=== PATIENT | female | born 1975 | race Caucasian/White ===

== ENCOUNTER 2019-10-10 08:51 | Day surgery (SDC) | payer BC ==
[~2019-10-10] VITALS: Ht 152.4 cm; Wt 71.8 kg
[~2019-10-10 08:51] MED LIST: BIRTH CONTROL PILL; PREVACID30 MG PO
[2019-10-10 10:00] LABS: HEMATOCRIT 45.1 % (36.0-48.0); HEMOGLOBIN 14.5 g/dL (12-16); MCH 28.7 pg (26.0-34.0); MCHC 32.2 g/dL (31.0-37.0); MCV 89.1 fL (80.0-100.0); RBC 5.06 10x6/uL (4.00-5.40); RDW 12.5 % (11.5-14.5); WBC 7.5 10x3/uL (4.8-10.8)
[2019-10-10 10:23] VITALS: BP 130/76; Ht 152.4 cm; Wt 71.8 kg
[2019-10-10 13:00] LABS: HCG URINE NEGATIVE (NEGATIVE)
--- NOTE | 2019-10-10 13:55 | NUR ---
1344-REC'D FROM RR. AWAKE AND ALERT.VSS. PAIN 2/10 DESCRIBES SORE THROAT. REVIEWED DISCHARGE CRITERIA.VERBALIZED UNDERSTANDING. CL IN EASY REACH. SPOUSE AT BEDSIDE.
--- NOTE | 2019-10-10 13:56 | NUR ---
1350-ICE WATER TO ROOM.
--- NOTE | 2019-10-10 18:01 | NUR ---
1517-LORTAB ELIXIR 10CC ADMINISTERED PER MD ORDERS FOR PAIN.
--- NOTE | 2019-10-10 18:03 | NUR ---
1530-REMOVED IV FROM RAC WITH CATH INTACT,DISPOSED INTO SHARPS,COVERED SITE WITH GUAZE,SECURED WITH MEDIPORE TAPE. REVIEWED POST OPERATIVE INSTRUCTIONS AND FOLLOW UP APPOINTMENT. VERBALIZED UNDERSTANDING
--- NOTE | 2019-10-10 18:05 | NUR ---
1545-PT DRESSED. PAIN SUBSIDED. ESCORTED OUT VIA W/C WITH SPOUSE AWAITING TO DRIVE HOME.
--- NOTE | 2019-10-13 09:20 | HP ---
PATIENT: PENNY FARRIS MEDICAL RECORD: [id number] ACCOUNT: [id number] LOCATION:[facility] : 73 ADMISSION DATE: 10/10/19 PCP: MIGEL CHAUDHYR MD HISTORY AND PHYSICAL EXAMINATION HISTORY OF PRESENT ILLNESS: Silvia Farris has having problems with chronic throat pain and tonsillitis. She is being admitted for tonsillectomy. PAST MEDICAL HISTORY: Otherwise negative. PAST SURGICAL HISTORY: None. CURRENT MEDICATIONS: Claritin-D. ALLERGIES: No known drug allergies. PHYSICAL EXAMINATION: GENERAL: Healthy-appearing, developmentally normal. FACE: Normal, symmetric, no lesions. EYES: Sclerae and conjunctivae are normal. EARS: Canals and TMs are normal. NOSE: No mass, polyps or drainage. ORAL CAVITY AND OROPHARYNX: She has deep crypts with tonsilliths bilaterally. The pharynx and hypopharynx all normal, otherwise. NECK: No masses, no adenopathy. CHEST: Clear. CARDIOVASCULAR: Regular rate and rhythm, no murmur. EXTREMITIES: Normal. IMPRESSION: Chronic caseous tonsillitis. PLAN: Tonsillectomy. TRANSINT:[id number] Voice Confirmation ID: [id number] DOCUMENT ID: [id number] JONY WATERS MD at 0920 CC: [id number] DICTATION DATE: 10/08/19 1523 CHILD CARE GROUP LEADER: 10/08/19 1725 [facility] 10/10/19 [id number] [place] [address]
--- NOTE | 2019-10-13 09:20 | OP ---
PATIENT NAME: PENNY FARRIS MEDICAL RECORD: [id number] :73 LOCATION:[facility] ADMISSION DATE: SURGEON: JONY SANCHEZ MD DATE OF OPERATION: 10/10/2019 PREOPERATIVE DIAGNOSIS: Chronic pharyngitis. POSTOPERATIVE DIAGNOSIS: Chronic pharyngitis. PROCEDURE: Tonsillectomy. SURGEON: Jony Sanchez MD ANESTHESIA: General orotracheal. BLOOD LOSS: 5 cc. SPECIMENS: Right and left tonsil. COMPLICATIONS: None. DISPOSITION: Recovery stable. PROCEDURE NOTE: She was brought to the operating room and placed in supine position, sedated and intubated by anesthesia. The eyes are taped. The table was turned 90 degrees. Head drape was applied and she was positioned for tonsillectomy. Using a headlight, a Chad-Ez mouth gag was carefully inserted and elevated on towel on her chest. The palate was examined and palpated as normal. A red rubber catheter was placed to the right side of the nose and pharynx was grasped with tonsil clamp to retract the soft palate. Using a mirror, the nasopharynx was examined and there was really no significant adenoid tissue. The choanae and eustachian orifices were normal bilaterally. The red rubber catheter was let down and removed. The right tonsil was grasped at the superior pole with a straight Allis clamp. Spatula tip cautery on a setting of 8 was used to dissect out the tonsil along its capsule, preserving the anterior and posterior tonsillar pillar. The left tonsil was removed in the same fashion. Then, both sides of the nose were irrigated with saline. The pharynx was suctioned. Tonsillar fossae were agitated. Suction cautery on a setting of 18 was used to control minimal oozing. With the field clean and dry, she was awakened, extubated, and transported to recovery in good condition. No complications. TRANSINT:[id number] Voice Confirmation ID: [id number] DOCUMENT ID: [id number] JONY SANCHEZ MD at 0920 CC: [id number] DICTATION DATE: 10/10/19 1431 LONG CHAIN QUILLER TENDER: 10/10/192001 [facility] 10/10/19 [place] [address]
== END 2019-10-10 15:45 | disposition home or self-care (01) ==
LOC: D.OPS 08:51 → D.PAN 11:05 → D.OPS 11:15 → D.PAN 11:15 → D.OPS 11:30 → D.PAN 11:35 → D.OPS 11:45 → D.PAN 11:45 → D.OPS 12:00
PROVIDERS: Anesthesiology; ATTEND Otolaryngology
DX: J31.2 Chronic pharyngitis (principal); J35.01 Chronic tonsillitis